=== PATIENT | male | born 1965 | race Two or more races ===

== ENCOUNTER 2021-03-07 13:41 | Emergency (ER) | payer BC, MEDICAID ==
[~2021-03-07] VITALS: Ht 165.1 cm; Wt 118.8 kg
[2021-03-07 14:46] VITALS: BP 171/79
== END 2021-03-07 17:01 | disposition home or self-care (01) ==
LOC: ER 13:41 → EDBD 13:41 → ER 16:58
DX: M17.12 Unilateral primary osteoarthritis, left knee (principal)
CPT/HCPCS: 73562

== ENCOUNTER 2021-07-05 11:27 | Emergency (ER) | payer OTHER, MEDICAID ==
[~2021-07-05] VITALS: Ht 165.1 cm; Wt 136.1 kg
[2021-07-05 12:30] VITALS: BP 131/80
[2021-07-05] MEDS ORDERED: ASPirin 81 mg TAB PO ONE (12:30)
[2021-07-05 12:42] LABS: Basophils # (auto) 0.1 10 ^3/uL (0-0.2); Basophils % (auto) 0.6 % (0.0-2.0); Eosinophils # (auto) 0.2 10 ^3/uL (0-0.8); Eosinophils % (auto) 1.7 % (0.0-7.0); Hematocrit 43.9 % (41.0-53.0); Hemoglobin 15.1 g/dL (13.5-17.5); Lymphocytes # (auto) 2.1 10 ^3/uL (0.4-5.4); Lymphocytes % (auto) 21.7 % (10.0-50.0); Mean Corpuscular Hgb Conc. 34.4 g/dL (32.0-36.0); Mean Corpuscular Volume 90.1 fL (80.0-100.0); Monocytes # (auto) 0.6 10 ^3/uL (0-1.3); Monocytes % (auto) 6.4 % (0.0-12.0); Neutrophils # (auto) 6.8 10 ^3/uL (1.6-8.6); Neutrophils % (auto) 69.6 % (37.0-80.0); Nucleated Red Blood Cells % 0.2 %; Red Blood Cells 4.87 10^6/uL (4.5-5.90); Red Cell Distribution Width 13.4 % (11.8-14.3); White Blood Cell 9.8 10^3/uL (4.4-10.8)
[2021-07-05 12:52] LABS: INR 1.01 (0.9-1.15); Partial Thromboplastin Time 27.1 sec (23.6-33.0)
[2021-07-05 12:56] LABS: Albumin 3.8 g/dL (3.4-5.0); Calcium 8.8 mg/dL (8.5-10.1); Potassium 4.4 mmol/L (3.5-5.1)
[2021-07-05 12:59] LABS: Bilirubin, Total 0.9 mg/dL (0.2-1.0); Total Protein 7.2 g/dL (6.4-8.2)
[2021-07-05] MEDS ORDERED: traMADol HCL 50 MG TAB PO ONE (14:45)
== END 2021-07-05 14:51 | disposition home or self-care (01) ==
LOC: ER 11:27
DX: R07.89 Other chest pain (principal); E11.9 Type 2 diabetes mellitus without complications; E78.5 Hyperlipidemia, unspecified; I10 Essential (primary) hypertension
CPT/HCPCS: 36415; 71045; 80053; 83735; 84484; 85025; 85610; 85730; 93005